=== PATIENT | male | born 2000 | race Caucasian/White ===

== ENCOUNTER 2023-10-10 19:43 | Emergency (ER) | payer OTHER | END 2023-10-10 20:55 | disposition home or self-care (01) | LOC: MW.ED 19:43 | DX: S93.492A Sprain of other ligament of left ankle, initial encounter (principal); X50.1XXA Overexertion from prolonged static or awkward postures, initial encounter; Y99.0 Civilian activity done for income or pay | CPT/HCPCS: 73610-26-LT; 73610-LT; 99283 ==